=== PATIENT | female | born 1990 | race Asian ===

== ENCOUNTER → 2017-05-06 | Outpatient (CLI) | payer BC ==
[~2017-05-06] MED LIST: IBUP800T25 PO
[2017-05-06 15:44] LABS: ALANINE AMINOTRANSFERASE 23 IU/L (13-69); ASPARTATE AMINO TRANSFERASE 28 IU/L (15-46); CHOLESTEROL 152 mg/dl (100-200); TRIGLYCERIDES 127 mg/dl (0-149)
== END | disposition home or self-care (01) ==
LOC: LAB 15:02
PROVIDERS: ATTEND Dermatology
DX: L70.0 Acne vulgaris (principal)
CPT/HCPCS: 82465; 84450; 84460; 84478; 84703